=== PATIENT | male | born 1965 | race Caucasian/White ===

== ENCOUNTER 2024-04-10 09:20 | Outpatient (CLI) | payer OTHER, SELFPAY ==
--- NOTE | ~2024-04-10 | CT_ITS ---
Clinical Indication: Aortic aneurysm CT Scan of the Chest with Contrast: Technique: Contiguous sections were acquired throughout the chest prior to and following intravenous administration of 100 cc of Omnipaque 350. Dose reduction technique was used on this scan by [employer] automated exposure control and iterative reconstruction technique. The dose-length product (DLP) wa s 1449.94 mGy-cm. Findings: There is no evidence of any significant mediastinal, hilar or axillary lymphadenopathy. Moderate eveline nary artery calcifications are present. There is no filling defect in the pulmonary arterial tree to suggest pulmonary embolus. Ascending aorta measures 4.8 cm in maximum diameter. No aortic dissection. . There is no evidence of pleural or pericardial effusion. The lungs are clear. No pulmonary nodules or infiltrates are noted. Images through the upper abdomen reveal no abnormalities. Impression: Ascending aortic aneurysm measures 4.8 cm in diameter. Clear lungs. Reviewed, dictated and finalized at [facility]. FACTURING RECRUITER Impression: Ascending aortic aneurysm measures 4.8 cm in diameter. Clear lungs.
[2024-04-10 09:46] LABS: Estimated Glomerular Filt Rate > 60
== END 2024-04-10 09:21 | disposition home or self-care (01) ==
DX: I71.21 Aneurysm of the ascending aorta, without rupture (principal)
CPT/HCPCS: 71275; Q9967